=== PATIENT | male | born 1935 | race Caucasian/White ===

== ENCOUNTER 2018-05-05 16:01 | Inpatient (IN) | payer OTHER ==
[~2018-05-05] VITALS: Ht 175.3 cm; Wt 75.7 kg
[2018-05-05] MEDS ORDERED: MORPHINE SULFATE 4 MG/ML CPJ (NOT FOR IM USE) IV STA (17:10)
[2018-05-05] MEDS ORDERED: ONDANSETRON HCL 4MG/2ML INJ IV STA (17:10)
[2018-05-05] MEDS ORDERED: TETANUS, DIPHTHERIA, PERTUSSIS VAC/PF 0.5ML (>7YR OLD) IM ONE (17:15)
[2018-05-05] MEDS ORDERED: LIDOCAINE HCL/PF 1% 10 MG/ML 5ML VIAL IJ ONE (17:15)
[2018-05-05] MEDS ORDERED: BACITRACIN ZINC OINT UDPKT TOP ONE ×2 (17:15→21:15)
[2018-05-05 18:40] LABS: BASOPHILS % 0.2 % (0.0-2.0); EOSINOPHILS % 1.7 % (0.0-5.0); HEMATOCRIT. 45.5 % (42.0-52.0); LYMPHOCYTES % 12.6 % (20.0-50.0); MEAN CORPUSCULAR HEMOGLOBIN 30.8 pg (28.0-32.0); MEAN CORPUSCULAR VOLUME 93.3 fL (80.0-94.0); MEAN PLATELET VOLUME 9.6 fl (7.4-10.4); NEUTROPHILS % 80.5 % (40.0-76.0); PLATELET 198 x1000/uL (130-400); RED BLOOD CELL COUNT 4.88 mill/uL (4.7-6.1); RED CELL DISTRIBUTION WIDTH 13.4 % (11.6-14.6)
[2018-05-05 18:43] LABS: CHLORIDE 106 mEq/L (98-107)
[2018-05-05 18:46] LABS: INR 1.1; PROTHROMBIN TIME 10.6 sec (9.1-11.1)
[2018-05-05 18:51] LABS: ETHANOL BLOOD < 10 mg/dL
[2018-05-05] MEDS ORDERED: LEVOFLOXACIN 750MG PREMIX 150 ML IV ONE (19:30)
[2018-05-05 20:37] LABS: *AMPHETAMINES SCREEN URINE NEGATIVE (NEGATIVE)
[2018-05-05 20:38] LABS: *BARBITURATES SCREEN URINE NEGATIVE (NEGATIVE); *BENZODIAZEPINES SCREEN URINE NEGATIVE (NEGATIVE); *COCAINE SCREEN URINE NEGATIVE (NEGATIVE); CANNABINOID URINE SCREEN NEGATIVE (NEGATIVE); METHADONE URINE SCREEN NEGATIVE (NEGATIVE); OPIATES URINE SCREEN NEGATIVE (NEGATIVE); PHENCYCLIDINE URINE SCREEN NEGATIVE (NEGATIVE)
[2018-05-05] MEDS ORDERED: IBUPROFEN 600MG TABLET PO ONE (21:00)
[2018-05-05] MEDS ORDERED: BACITRACIN 15GM TUBE TOP ONE (21:15)
[2018-05-06] VITALS (8 sets, daily range): BP systolic 105–153; BP diastolic 54–82
[2018-05-06] MEDS ORDERED: MORPHINE SULFATE 4 MG/ML CPJ (NOT FOR IM USE) IV NR (00:30)
[2018-05-06] MEDS ORDERED: ONDANSETRON HCL 4MG/2ML INJ IV NR (01:00)
[2018-05-06] MEDS ORDERED: LISI-604 PO (03:44)
[2018-05-06] MEDS ORDERED: ATEN50TA PO (03:44)
[2018-05-06] MEDS ORDERED: FLEC150T2 PO (03:44)
[2018-05-06] MEDS ORDERED: ACETAMINOPHEN 325MG TABLET PO PRN (05:00)
[2018-05-06] MEDS ORDERED: FAMOTIDINE 20MG TABLET PO SCH (09:00)
[2018-05-06] MEDS ORDERED: ENOXAPARIN 40MG/0.4ML SYR SUBCUT SCH (09:00)
[2018-05-06 09:34] LABS: CREATINE KINASE MB FRACTION 5.9 ng/mL (0.5-3.6)
[2018-05-06] MEDS: LISINOPRIL 20MG TABLET PO SCH (09:47)
[2018-05-06] MEDS: FLECAINIDE 50MG TABLET PO SCH ×2 (09:48→21:14)
[2018-05-06] MEDS ORDERED: IOHEXOL-350 100 ML BOTTLE ONE (10:53)
[2018-05-06 12:28] LABS: HEMATOCRIT 43.1 % (42.0-52.0); HEMOGLOBIN 14.5 g/dL (14.0-18.0); MEAN CORPUSCULAR HEMOGLOBIN 31.3 pg (28.0-32.0); MEAN CORPUSCULAR VOLUME 93.3 fL (80.0-94.0); PLATELET 186 x1000/uL (130-400); RED BLOOD CELL COUNT 4.62 mill/uL (4.7-6.1); RED CELL DISTRIBUTION WIDTH 13.6 % (11.6-14.6)
[2018-05-06] MEDS ORDERED: ONDANSETRON HCL 4MG/2ML INJ IV PRN (13:00)
[2018-05-06] MEDS ORDERED: MECLIZINE 12.5MG TABLET PO PRN (13:00)
[2018-05-06] MEDS ORDERED: DIPHENHYDRAMINE 50MG/ML VIAL IV PRN (13:00)
[2018-05-06] MEDS ORDERED: DOCUSATE SODIUM 100MG CAPSULE PO PRN (13:00)
[2018-05-06] MEDS ORDERED: LORAZEPAM 0.5MG TABLET PO PRN (13:00)
[2018-05-06] MEDS: SODIUM CHLORIDE 0.45% 1,000 ML IV SCH (13:15)
[2018-05-06] MEDS ORDERED: IPRATROPIUM/ALBUTEROL 0.5-3(2.5)MG/3ML NEB HHN PRN (13:15)
[2018-05-06] MEDS: NICOTINE 21MG PATCH TD SCH (14:38)
[2018-05-06] MEDS: HYDROCODONE/ACETAMINOPHEN 5/325MG TABLET PO PRN (14:39)
[2018-05-06] MEDS: GABAPENTIN 100MG CAPSULE PO SCH (17:21)
[2018-05-06 18:27] LABS: CREATINE KINASE MB FRACTION 7.2 ng/mL (0.5-3.6)
[2018-05-06] MEDS: PIPERACILLIN/TAZ 3.375G PREMIX 50 ML IV SCH (19:16)
[2018-05-06 19:40] LABS: CLARITY URINE CLEAR (CLEAR); COLOR URINE YELLOW (YELLOW); KETONES URINE NEGATIVE (NEGATIVE); LEUKOCYTE ESTERASE URINE NEGATIVE (NEGATIVE); NITRITE URINE NEGATIVE (NEGATIVE); OCCULT BLOOD URINE TRACE (NEGATIVE); PROTEIN URINE 1+ (NEGATIVE); UROBILINOGEN URINE 0.2 E.U./dL (0.2-1.0)
[2018-05-06] MEDS ORDERED: LEVOFLOXACIN 500MG PREMIX 100 ML IV SCH (21:00)
[2018-05-06] MEDS: NEOMY SULF/BACITRAC ZN/POLY OINT 28GM TOP SCH (21:15)
[2018-05-07] VITALS: BP 130/49
[2018-05-07] MEDS: PIPERACILLIN/TAZ 3.375G PREMIX 50 ML IV SCH ×4 (00:59→18:09)
[2018-05-07 03:06] LABS: CREATINE KINASE MB FRACTION 6.5 ng/mL (0.5-3.6)
[2018-05-07 04:00] VITALS: BP 118/57
[2018-05-07] MEDS: SODIUM CHLORIDE 0.45% 1,000 ML IV SCH ×2 (04:28→22:30)
[2018-05-07 07:18] LABS: CHLORIDE 105 mEq/L (98-107)
[2018-05-07 07:22] LABS: BASOPHILS % 0.4 % (0.0-2.0); EOSINOPHILS % 3.5 % (0.0-5.0); HEMATOCRIT. 41.6 % (42.0-52.0); HEMOGLOBIN. 13.9 g/dL (14.0-18.0); LYMPHOCYTES % 17.6 % (20.0-50.0); MEAN CORPUSCULAR HEMOGLOBIN 31.2 pg (28.0-32.0); MEAN CORPUSCULAR VOLUME 93.2 fL (80.0-94.0); MEAN PLATELET VOLUME 9.6 fl (7.4-10.4); MONOCYTES % 10.1 % (2.0-8.0); NEUTROPHILS % 68.4 % (40.0-76.0); PLATELET 165 x1000/uL (130-400); RED BLOOD CELL COUNT 4.46 mill/uL (4.7-6.1); RED CELL DISTRIBUTION WIDTH 13.1 % (11.6-14.6)
[2018-05-07 07:34] LABS: LDL CHOLESTEROL 91 mg/dL (5-100)
[2018-05-07 07:35] LABS: HDL CHOLESTEROL 39 mg/dL (40-59); T4 FREE 1.21 ng/dL (0.76-1.46)
[2018-05-07 08:00] VITALS: BP 147/58
[2018-05-07] MEDS: NICOTINE 21MG PATCH TD SCH (09:00)
[2018-05-07] MEDS: FLECAINIDE 50MG TABLET PO SCH ×2 (09:30→21:28)
[2018-05-07] MEDS: FAMOTIDINE 20MG TABLET PO SCH (09:32)
[2018-05-07] MEDS: GABAPENTIN 100MG CAPSULE PO SCH ×2 (09:32→17:04)
[2018-05-07] MEDS: LISINOPRIL 20MG TABLET PO SCH (09:32)
[2018-05-07] MEDS: NEOMY SULF/BACITRAC ZN/POLY OINT 28GM TOP SCH ×2 (09:33→21:27)
[2018-05-07] MEDS: AMLODIPINE 5MG TABLET PO SCH (09:42)
[2018-05-07] MEDS: ATENOLOL 50 MG TABLET PO SCH ×2 (09:42→09:44)
[2018-05-07 11:07] LABS: BG BASE EXCESS -0.3 mmol/L (-2.0-2.0); BG CARBOXYHEMOGLOBIN 1.4 % (0.5-1.5); BG DEOXYHEMOGLOBIN 3.2 % (0.0-5.0); BG FRACTION INSPIRED OXYGEN 21; BG HCO3 ACT 23.9 mmol/L (22.0-26.0); BG METHEMOGLOBIN 0.2 % (0.0-1.5); BG OXYGEN SATURATION 96.7 % (92.0-98.5); BG OXYHEMOGLOBIN 95.2 % (94.0-97.0); BG PCO2 38.1 mmHg (35.0-45.0); BG PH 7.416 (7.350-7.450); BG PO2 89.6 mmHg (75.0-100.0); BG SAMPLE SITE RIGHT BRACHIAL; BG TOTAL HEMOGLOBIN 14.1 g/dL (12.0-18.0); BG VENT MODE ROOM AIR
[2018-05-07 12:00] VITALS: BP 114/55
[2018-05-07] MEDS: HYDROCODONE/ACETAMINOPHEN 5/325MG TABLET PO PRN ×2 (12:58→20:20)
[2018-05-07 16:00] VITALS: BP 113/45
[2018-05-07 20:00] VITALS: BP 130/64
[2018-05-08] VITALS: BP_SYST 126; BP_SYST 139; BP_DIAS 58; BP_DIAS 67
[2018-05-08] MEDS: PIPERACILLIN/TAZ 3.375G PREMIX 50 ML IV SCH ×4 (00:48→19:00)
[2018-05-08 04:00] VITALS: BP 139/61
[2018-05-08 07:08] LABS: CHLORIDE 108 mEq/L (98-107)
[2018-05-08 07:17] LABS: CREATINE KINASE 242 IU/L (39-308)
[2018-05-08 07:18] LABS: CREATINE KINASE MB FRACTION 3.2 ng/mL (0.5-3.6)
[2018-05-08 07:25] LABS: BASOPHILS % 0.2 % (0.0-2.0); EOSINOPHILS % 6.7 % (0.0-5.0); HEMATOCRIT. 40.7 % (42.0-52.0); HEMOGLOBIN. 13.8 g/dL (14.0-18.0); LYMPHOCYTES % 23.7 % (20.0-50.0); MEAN CORPUSCULAR HEMOGLOBIN 31.7 pg (28.0-32.0); MEAN CORPUSCULAR VOLUME 93.8 fL (80.0-94.0); MEAN PLATELET VOLUME 9.3 fl (7.4-10.4); MONOCYTES % 9.6 % (2.0-8.0); NEUTROPHILS % 59.8 % (40.0-76.0); PLATELET 157 x1000/uL (130-400); RED BLOOD CELL COUNT 4.34 mill/uL (4.7-6.1); RED CELL DISTRIBUTION WIDTH 13.3 % (11.6-14.6)
[2018-05-08 08:00] VITALS: BP_SYST 140; BP_SYST 156; BP_SYST 167; BP_DIAS 56; BP_DIAS 58; BP_DIAS 69
[2018-05-08] MEDS ORDERED: REGADENOSON 0.4 MG/5 ML IV ONE ×2 (08:45→10:34)
[2018-05-08] MEDS: NEOMY SULF/BACITRAC ZN/POLY OINT 28GM TOP SCH ×2 (09:00→20:35)
[2018-05-08 12:00] VITALS: BP 111/78
[2018-05-08] MEDS: AMLODIPINE 5MG TABLET PO SCH (13:32)
[2018-05-08] MEDS: ATENOLOL 50 MG TABLET PO SCH (13:36)
[2018-05-08] MEDS: LISINOPRIL 20MG TABLET PO SCH (13:37)
[2018-05-08] MEDS: NICOTINE 21MG PATCH TD SCH (13:47)
[2018-05-08] MEDS: GABAPENTIN 100MG CAPSULE PO SCH ×2 (13:48→20:31)
[2018-05-08] MEDS: FAMOTIDINE 20MG TABLET PO SCH (13:50)
[2018-05-08] MEDS: FLECAINIDE 50MG TABLET PO SCH ×2 (13:50→20:34)
[2018-05-08 16:00] VITALS: BP 132/70
[2018-05-08 20:00] VITALS: BP_SYST 143; BP_SYST 153; BP_DIAS 60; BP_DIAS 64
[2018-05-08] MEDS: SODIUM CHLORIDE 0.45% 1,000 ML IV SCH (20:35)
[2018-05-09] VITALS: BP 149/66
[2018-05-09] MEDS: PIPERACILLIN/TAZ 3.375G PREMIX 50 ML IV SCH ×3 (00:23→13:03)
[2018-05-09 04:00] VITALS: BP 140/55
[2018-05-09] MEDS: SODIUM CHLORIDE 0.45% 1,000 ML IV SCH (06:59)
[2018-05-09 08:00] VITALS: BP 156/61
[2018-05-09] MEDS: FLECAINIDE 50MG TABLET PO SCH (09:07)
[2018-05-09] MEDS: FAMOTIDINE 20MG TABLET PO SCH (09:07)
[2018-05-09] MEDS: ATENOLOL 50 MG TABLET PO SCH (09:07)
[2018-05-09] MEDS: LISINOPRIL 20MG TABLET PO SCH (09:07)
[2018-05-09] MEDS: NICOTINE 21MG PATCH TD SCH (09:08)
[2018-05-09] MEDS: NEOMY SULF/BACITRAC ZN/POLY OINT 28GM TOP SCH (09:08)
[2018-05-09] MEDS: GABAPENTIN 100MG CAPSULE PO SCH (09:08)
[2018-05-09] MEDS: AMLODIPINE 5MG TABLET PO SCH (09:08)
[2018-05-09 09:20] VITALS: BP_SYST 148; BP_SYST 165; BP_DIAS 73; BP_DIAS 74
[2018-05-09] MEDS: HYDROCODONE/ACETAMINOPHEN 5/325MG TABLET PO PRN (09:22)
[2018-05-09 12:00] VITALS: BP 116/47
[2018-05-09 16:19] VITALS: BP 116/47
== END 2018-05-09 16:44 | disposition home or self-care (01) | DRG 280 ==
LOC: ER 16:01 → 5WST 20:51 → EDBEDREQ 20:54 → EDBEDREQTM 20:54 → ENRESERV 05-06 01:03
PROVIDERS: ADMIT Internal Medicine; ATTEND Internal Medicine
PROC: 0HQ1XZZ Repair Face Skin, External Approach (ICD-10-PCS; principal; 2018-05-05)
DX: I21.4 Non-ST elevation (NSTEMI) myocardial infarction (principal); I50.33 Acute on chronic diastolic (congestive) heart failure; J18.9 Pneumonia, unspecified organism; M62.82 Rhabdomyolysis; K21.9 Gastro-esophageal reflux disease without esophagitis; I11.0 Hypertensive heart disease with heart failure; E11.65 Type 2 diabetes mellitus with hyperglycemia; F17.210 Nicotine dependence, cigarettes, uncomplicated; I25.10 Atherosclerotic heart disease of native coronary artery without angina pectoris; I48.91 Unspecified atrial fibrillation; M46.90 Unspecified inflammatory spondylopathy, site unspecified; M47.9 Spondylosis, unspecified; S01.81XA Laceration without foreign body of other part of head, initial encounter; M54.10 Radiculopathy, site unspecified; W19.XXXA Unspecified fall, initial encounter; Z82.49 Family history of ischemic heart disease and other diseases of the circulatory system; G90.8 Other disorders of autonomic nervous system; J44.9 Chronic obstructive pulmonary disease, unspecified; E11.42 Type 2 diabetes mellitus with diabetic polyneuropathy; Z79.84 Long term (current) use of oral hypoglycemic drugs
CPT/HCPCS: 36415; 36600; 70486; 70551; 71045; 71275; 73110; 78452; 80048; 80061; 80305; 82375; 82550; 82553; 82805; 83036; 83605; 83735; 83880; 84439; 84443; 84484; 85027; 90715; 93005; 93017; 93306; 93880; 93970; 96372; 96374; 97161; 97165; 99285; A9500; J1650; J1956; J2270; J2405; J2543; J2785; J3490; Q9967